=== PATIENT | male | born 1960 | race Caucasian/White ===

== ENCOUNTER 2019-12-11 10:15 | Inpatient (IN) | payer MEDICARE, MEDICAID ==
[~2019-12-11] VITALS: Ht 177.8 cm; Wt 80.5 kg
[~2019-12-11 10:15] MED LIST: ASPIRIN325 MG ORAL; DEPAKOTE250 MG PO; FISH OIL CAP1000 MG ORAL; INDERAL LA60 MG ORAL; MELATONIN3 M1 ORAL; MIRTAZAPINE15 MG ORAL; TRAZODONE HCL150 MG ORAL; ZYPREXA10 MG ORAL
[2019-12-11 10:23] VITALS: BP 127/84
--- NOTE | 2019-12-11 10:29 | Emergency Room Report ---
History of Present Illness General Chief Complaint: Chest Pain Source: Patient, Medical Record, EMS Present Illness HPI This patient presents from a boarding care facility. He reports that he developed chest pain this morning just after he woke up. He states that the chest pain has since resolved. He denies recent illness. He denies cough or congestion. He denies shortness of breath. Denies fever chills. He denies nausea or vomiting. He has no other complaints. 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 Patient History Past Medical History: see triage record, HTN, psych hx Social History: Denies: smoking, alcohol use, drug use Reviewed Nursing Documentation: PMH: Agreed; PSxH: Agreed Nursing Documentation-PMH Hx Cardiac Problems: Yes Hx Hypertension: Yes Hx Diabetes: Yes Hx Cancer: No Hx Gastrointestinal Problems: No History Of Psychiatric Problem: Yes Hx Neurological Problems: Yes Hx Syncope: Yes Review of Systems All Other Systems: negative except mentioned in HPI Physical Exam Vital Signs Date Time Temp Pulse Resp B/P (MAP) Pulse Ox O2 Delivery O2 Flow Rate FiO2 12/11/19 10:19 97.3 62 19 127/84 (98) 99 Room Air Sp02 EP Interpretation: reviewed, normal General Appearance: no apparent distress, alert, GCS 15, non-toxic Head: normocephalic, atraumatic Eyes: bilateral eye normal inspection, bilateral eye PERRL ENT: hearing grossly normal, normal pharynx, no angioedema, normal voice Neck: full range of motion, supple/symm/no masses Respiratory: chest non-tender, lungs clear, normal breath sounds, no respiratory distress, no retraction, no accessory muscle use, speaking full sentences Cardiovascular #1: regular rate, rhythm, no edema Gastrointestinal: normal bowel sounds, non tender, soft, non-distended, no guarding, no rebound Rectal: deferred Musculoskeletal: back normal, normal range of motion, gait/station normal, non- tender Neurologic: alert, motor strength/tone normal, oriented x3, sensory intact, responsive, speech normal Psychiatric: judgement/insight normal, memory normal, mood/affect normal, no suicidal/homicidal ideation Skin: no rash, normal color Medical Decision Making Diagnostic Impression: Primary Impression: Chest pain ER Course This patient presents with chest pain. Overall, the patient's evaluation was benign. However, the patient's EKG did have nonspecific findings in the inferior leads that could represent cardiac ischemia. Patient's initial troponin was negative. Chest x-ray was unremarkable. Overall, the patient remained stable with normal vital signs. He was given aspirin orally. He is admitted for further evaluation and treatment and to further assess for acute coronary syndrome. This patient was evaluated in the context of the global COVID-19 pandemic, which necessitated consideration that the patient might be at risk for infection with the [id number] virus that causes COVID-19. Institutional protocols and algorithms that pertain to the evaluation of patients at risk for COVID-19 and the state of rapid change based on information released by multiple regulatory bodies including the CDC and federal and state organizations. These policies and algorithms were followed during the patient' s care in the ED. Laboratory Tests Test 12/11/19 10:36 12/11/19 10:41 White Blood Count 6.9 K/UL (4.8-10.8) Red Blood Count 4.66 M/UL (4.70-6.10) L Hemoglobin 14.5 G/DL (14.2-18.0) Hematocrit 40.6 % (42.0-52.0) L Mean Corpuscular Volume 87 FL (80-99) Mean Corpuscular Hemoglobin 31.1 PG (27.0-31.0) H Mean Corpuscular Hemoglobin Concent 35.7 G/DL (32.0-36.0) Red Cell Distribution Width 13.1 % (11.6-14.8) Platelet Count 370 K/UL (150-450) Mean Platelet Volume 5.6 FL (6.5-10.1) L Neutrophils (%) (Auto) 63.0 % (45.0-75.0) Lymphocytes (%) (Auto) 21.2 % (20.0-45.0) Monocytes (%) (Auto) 8.1 % (1.0-10.0) Eosinophils (%) (Auto) 6.1 % (0.0-3.0) H Basophils (%) (Auto) 1.7 % (0.0-2.0) Prothrombin Time 11.3 SEC (9.30-11.50) Prothrombin Time INR 1.0 (0.9-1.1) Activated Partial Thromboplast Time 27 SEC (23-33) Sodium Level 143 MMOL/L (136-145) Potassium Level 4.2 MMOL/L (3.5-5.1) Chloride Level 107 MMOL/L (98-107) Carbon Dioxide Level 28 MMOL/L (21-32) Anion Gap 8 mmol/L (5-15) Blood Urea Nitrogen 17 mg/dL (7-18) Creatinine 0.8 MG/DL (0.55-1.30) Estimated Glomerular Filtration Rate > 60 mL/min (>60) Glucose Level 103 MG/DL (74-106) Calcium Level 8.5 MG/DL (8.5-10.1) Total Bilirubin 0.2 MG/DL (0.2-1.0) Aspartate Amino Transferase (AST) 17 U/L (15-37) Alanine Aminotransferase (ALT) 25 U/L (12-78) Alkaline Phosphatase 51 U/L (46-116) Troponin I 0.000 ng/mL (0.000-0.056) Total Protein 7.1 G/DL (6.4-8.2) Albumin 3.0 G/DL (3.4-5.0) L Globulin 4.1 g/dL Albumin/Globulin Ratio 0.7 (1.0-2.7) L Urine Color Pale yellow Urine Appearance Clear Urine pH 7 (4.5-8.0) Urine Specific [place] 1.010 (1.005-1.035) Urine Protein Negative (NEGATIVE) Urine Glucose (UA) Negative (NEGATIVE) Urine Ketones Negative (NEGATIVE) Urine Blood 1+ (NEGATIVE) H Urine Nitrite Negative (NEGATIVE) Urine Bilirubin Negative (NEGATIVE) Urine Urobilinogen Normal MG/DL (0.0-1.0) Urine Leukocyte Esterase Negative (NEGATIVE) Urine RBC 0-2 /HPF (0 - 0) H Urine WBC 0-2 /HPF (0 - 0) Urine Squamous Epithelial Cells Occasional /LPF Urine Bacteria Occasional /HPF (NONE) Urine Opiates Screen Pending Urine Barbiturates Screen Pending Phencyclidine (PCP) Screen Pending Urine Amphetamines Screen Pending Urine Benzodiazepines Screen Pending Urine Cocaine Screen Pending Urine Marijuana (THC) Screen Pending EKG Diagnostic Results Rate: normal Rhythm: NSR ST Segments: other - Flipped T-waves in III, aVF (NSST findings) Rhythm Strip Diag. Results EP Interpretation: yes Rate: 60's Rhythm: NSR, no PVC's, no ectopy Chest X-Ray Diagnostic Results Chest X-Ray Diagnostic Results : Chest X-Ray Ordered: Yes # of Views/Limited/Complete: 1 View Indication: Chest Pain EP Interpretation: Yes Interpretation: no consolidation, no effusion, no pneumothorax, no acute cardiopulmonary disease Impression: No acute disease Electronically Signed by: Phyllis Kincaid DO Last Vital Signs Date Time Temp Pulse Resp B/P (MAP) Pulse Ox O2 Delivery O2 Flow Rate FiO2 12/11/19 10:19 97.3 62 19 127/84 (98) 99 Room Air Disposition: ADMITTED INPATIENT Condition: Stable Phyllis Kincaid DO December 11, 2019 10:28
[2019-12-11 10:57] LABS: BASOPHILS % (AUTO) 1.7 % (0.0-2.0); EOSINOPHILS % (AUTO) 6.1 % (0.0-3.0); HEMATOCRIT 40.6 % (42.0-52.0); HEMOGLOBIN 14.5 G/DL (14.2-18.0); LYMPHOCYTES % (AUTO) 21.2 % (20.0-45.0); MEAN CORPUSCULAR VOLUME 87 FL (80-99); MONOCYTES % (AUTO) 8.1 % (1.0-10.0); PLATELET COUNT 370 K/UL (150-450); RED BLOOD COUNT 4.66 M/UL (4.70-6.10); RED CELL DISTRIBUTION WIDTH 13.1 % (11.6-14.8); WHITE BLOOD COUNT 6.9 K/UL (4.8-10.8)
[2019-12-11] MEDS ORDERED: HALDOL DEC100 MG/1 M IM (10:59)
[2019-12-11 11:01] LABS: ANION GAP 8 mmol/L (5-15); BLOOD UREA NITROGEN 17 mg/dL (7-18); CALCIUM 8.5 MG/DL (8.5-10.1); CARBON DIOXIDE 28 MMOL/L (21-32); CHLORIDE 107 MMOL/L (98-107); CREATININE 0.8 MG/DL (0.55-1.30); POTASSIUM 4.2 MMOL/L (3.5-5.1); SODIUM 143 MMOL/L (136-145)
[2019-12-11 11:06] LABS: ALANINE AMINOTRANSFERASE 25 U/L (12-78); ALBUMIN/GLOBULIN RATIO 0.7 (1.0-2.7); ALKALINE PHOSPHATASE 51 U/L (46-116); ASPARTATE AMINO TRANSFERASE 17 U/L (15-37); BILIRUBIN,TOTAL 0.2 MG/DL (0.2-1.0)
--- NOTE | 2019-12-11 11:20 | Diagnostic Imaging Report ---
Procedure: XRAY Chest 1v Reason for study: Chest pain Comparison films: 07/12/2019. FINDINGS: A single one view chest is obtained. Vascularity is normal. Minimal streaky atelectasis at the left lung base. Cardiac and mediastinal silhouette are within normal limits. CP angles are sharp. The bony thorax appear unremarkable. IMPRESSION: Minimal left basilar atelectasis.
[2019-12-11 11:27] LABS: APPEARANCE,URINE CLEAR; BILIRUBIN, URINE NEGATIVE (NEGATIVE); COLOR,URINE PALE YELLOW; GLUCOSE, URINE (UA) NEGATIVE (NEGATIVE); KETONES,URINE NEGATIVE (NEGATIVE); LEUKOCYTE ESTERASE ,URINE NEGATIVE (NEGATIVE); NITRITE,URINE NEGATIVE (NEGATIVE); PH,URINE 7 (4.5-8.0); PROTEIN,URINE NEGATIVE (NEGATIVE); UROBILINOGEN,URINE NORMAL MG/DL (0.0-1.0)
[2019-12-11 12:00] VITALS: BP 120/78
[2019-12-11 13:20] VITALS: BP_SYST 123; BP_SYST 133; BP_DIAS 67; BP_DIAS 81
[2019-12-11 15:59] VITALS: BP 143/76
[2019-12-11 20:00] VITALS: BP 136/74
[2019-12-11] MEDS: TraZODone 100mg tab ORAL SCH (21:32)
[2019-12-11] MEDS: Depakote 500mg tab ORAL SCH (21:32)
[2019-12-12] VITALS: BP 120/69
--- NOTE | 2019-12-12 00:45 | Consultation ---
DATE OF CONSULTATION: 12/11/2019 PULMONARY CONSULTATION HISTORY OF PRESENT ILLNESS: This is a 59-year-old male who came to the hospital with chest pain. The patient is a board and care resident. He denies chest congestion, fever, or cough. He reports much shortness of breath. The patient was seen and admitted to the hospital. PAST HISTORY: Significant for diabetes mellitus, hypertension, history of previous cardiac problems, underlying psych problems, and also previous syncope. MEDICATIONS: Reviewed and reconciled in chart. PHYSICAL EXAMINATION: VITAL SIGNS: Blood pressure is 130/60 and O2 saturation 98% on room air. LUNGS: Clear breath sounds. ABDOMEN: Soft. EXTREMITIES: There is no edema. NEUROLOGIC: Nonfocal. IMPRESSION: Chest pain. DISCUSSION: The patient's chest x-ray shows atelectasis. Continue medications, oxygen, pulmonary hygiene. Labs abnormal. Stress test per Cardiology. We will follow. Pablito Judd M.D. DR: Abhinav JOB#: [id number] CC:
[2019-12-12 04:00] VITALS: BP 146/80
[2019-12-12 08:00] VITALS: BP 104/70
[2019-12-12] MEDS: Depakote 500mg tab ORAL SCH ×2 (08:41→20:45)
[2019-12-12] MEDS: OLANZapine 10mg tab ORAL SCH ×2 (08:41→17:52)
--- NOTE | 2019-12-12 11:53 | Cardiac Electrophysiology PN ---
Subjective Subjective [id number] Objective Last 24 Hour Vital Signs Date Time Temp Pulse Resp B/P (MAP) Pulse Ox O2 Delivery O2 Flow Rate FiO2 12/12/19 09:00 Room Air 12/12/19 08:00 97.2 55 18 104/70 (81) 99 12/12/19 04:00 48 12/12/19 04:00 97.9 53 17 146/80 (102) 100 12/12/19 00:00 46 12/12/19 00:00 97.2 46 17 120/69 (86) 100 12/11/19 21:00 Room Air 12/11/19 20:00 97.5 57 18 136/74 (94) 99 12/11/19 20:00 57 12/11/19 16:00 54 12/11/19 15:59 97.7 53 18 143/76 (98) 99 12/11/19 15:02 Room Air 12/11/19 13:30 52 12/11/19 13:20 97.5 56 17 133/81 (98) 100 12/11/19 13:20 97.3 76 19 123/67 98 Room Air 12/11/19 13:20 97.3 68 20 127/84 99 Room Air 12/11/19 12:00 97.3 71 18 120/78 100 Room Air Intake and Output 12/11/19 12/12/19 19:00 07:00 Intake Total 480 ml 250 ml Balance 480 ml 250 ml Intake Oral 480 ml 250 ml # Voids 2 2 Laboratory Tests Test 12/12/19 05:30 Troponin I 0.000 ng/mL (0.000-0.056) Microbiology Date/Time Source Procedure Growth Status 12/11/19 12:15 Rectum Received Ramiro Denis MD December 12, 2019 11:53
[2019-12-12] MEDS ORDERED: Lexiscan 0.4mg/5ml syringe IV PRN (11:55)
[2019-12-12 12:00] VITALS: BP 118/66
--- NOTE | 2019-12-12 15:11 | Pulmonology Progress Note ---
Subjective Interval Events: None new Constitutional: Reports: no symptoms HEENT: Repors: no symptoms Respiratory: Reports: no symptoms Cardiovascular: Reports: no symptoms Allergies: Coded Allergies: No Known Allergies (Unverified , 07/12/19) Objective Last 24 Hour Vital Signs Date Time Temp Pulse Resp B/P (MAP) Pulse Ox O2 Delivery O2 Flow Rate FiO2 12/12/19 12:00 58 12/12/19 12:00 97.3 54 18 118/66 (83) 100 12/12/19 09:00 Room Air 12/12/19 08:00 97.2 55 18 104/70 (81) 99 12/12/19 08:00 53 12/12/19 04:00 48 12/12/19 04:00 97.9 53 17 146/80 (102) 100 12/12/19 00:00 46 12/12/19 00:00 97.2 46 17 120/69 (86) 100 12/11/19 21:00 Room Air 12/11/19 20:00 97.5 57 18 136/74 (94) 99 12/11/19 20:00 57 12/11/19 16:00 54 12/11/19 15:59 97.7 53 18 143/76 (98) 99 Intake and Output 12/11/19 12/12/19 19:00 07:00 Intake Total 480 ml 250 ml Balance 480 ml 250 ml Intake Oral 480 ml 250 ml # Voids 2 2 General Appearance: no acute distress HEENT: normocephalic Respiratory: chest wall non-tender, lungs clear Cardiovascular: normal peripheral pulses Abdomen: normal bowel sounds Microbiology Date/Time Source Procedure Growth Status 12/11/19 12:15 Rectum Received Laboratory Tests 12/12/19 05:30: Troponin I 0.000 12/12/19 12:15: Troponin I 0.000 Current Medications Medications (Trade) Dose Ordered Sig/Ben Route PRN Reason Start Time Stop Time Status Last Admin Dose Admin Aspirin (ASA) 325 mg DAILY ORAL 12/12/19 09:00 01/26/20 08:59 12/12/19 08:41 Divalproex Sodium (Depakote) 500 mg Q12HR ORAL 12/11/19 21:00 01/25/20 20:59 12/12/19 08:41 Hydralazine HCl (Apresoline) 10 mg Q4H PRN IV sbp>170 12/12/19 11:56 03/11/20 11:55 Mirtazapine (Remeron) 15 mg BEDTIME ORAL 12/11/19 21:00 03/10/20 20:59 12/11/19 21:32 Olanzapine (ZyPREXA) 20 mg BID ORAL 12/12/19 09:00 01/26/20 08:59 12/12/19 08:41 Regadenoson (Lexiscan) 0.4 mg ONCE PRN IV CARDIOLOGY 12/12/19 11:55 12/13/19 23:59 Trazodone HCl (Desyrel) 50 mg BEDTIME ORAL 12/11/19 21:00 01/10/20 20:59 12/11/19 21:32 Assessment/Plan Assessment/Plan IMPRESSION: Chest pain. DISCUSSION: The patient's chest x-ray shows atelectasis. Continue medications, oxygen, pulmonary hygiene. Labs are normal. Stress test per Cardiology. I will follow. Otoniel Alfredo Omar Syed MD December 12, 2019 15:11
[2019-12-12 16:00] VITALS: BP 107/69
[2019-12-12 20:00] VITALS: BP 134/80
[2019-12-12] MEDS: TraZODone 100mg tab ORAL SCH (20:45)
--- NOTE | 2019-12-12 20:59 | Consultation ---
DATE OF CONSULTATION: 12/12/2019 CARDIOLOGY CONSULTATION CONSULTING PHYSICIAN: Ramiro Denis MD. REFERRING PHYSICIAN: Daniel Linder DO. REASON FOR CONSULTATION: Chest pain, inferior wall ischemia. HISTORY OF PRESENT ILLNESS: The patient is a 59-year-old gentleman with history of hypertension, diabetes, and he has a history of underlying psych problem, was brought from board and care for chest discomfort and shortness of breath. The patient's EKG showed inferior wall ischemia and a Cardiology consultation was obtained for further evaluation. At the time of my evaluation, the patient is on isolation for COVID-19 and a Cardiology consultation was obtained for further evaluation and management. REVIEW OF SYSTEMS: Review of systems was negative other than what was mentioned in the history of present illness. PAST MEDICAL HISTORY: As mentioned above. FAMILY HISTORY: Noncontributory. SOCIAL HISTORY: He lives in prison. Does not smoke or drink alcohol. PHYSICAL EXAMINATION: VITAL SIGNS: Blood pressure of 104/70, pulse 55, respirations 18, and he is afebrile. His heart rate was as low as 46 before. HEAD AND NECK: Showed no JVD. LUNGS: Clear. CARDIOVASCULAR: Regular S1 and S2 with no gallop. ABDOMEN: Soft. EXTREMITIES: No pitting edema. LABORATORY AND DIAGNOSTIC DATA: White count of 6.9, hemoglobin 14.5, hematocrit of 40, and platelet count of 270. Sodium 142, potassium 4.2, BUN of 17, creatinine 0.9. Troponin negative x2. Urine toxicology is negative. ASSESSMENT AND PLAN: 1. Chest pain and inferior wall ischemia. The patient already ruled out for myocardial infarction. We will get an echocardiogram to evaluate for ejection fraction and wall motion abnormality. the patient will need a stress test after COVID is ruled out. 2. Hypertension. I will add p.r.n. clonidine at this time. 3. History of psychiatric issue, on Zyprexa, Depakote, Desyrel. Thank you very much for allowing me to participate in the care of this patient. Please do not hesitate to contact me for any questions regarding my evaluation. Sincerely, Ramiro Denis M.D. DR: Jaymie JOB#: [id number] CC:
--- NOTE | 2019-12-12 21:59 | History and Physical Report ---
DATE OF ADMISSION: 12/11/2019 TIME SEEN: 1 p.m. CONSULTANTS: 1. Ramiro Denis MD. 2. Pablito Judd MD. CHIEF COMPLAINT: Chest pain and short of breath. BRIEF HISTORY: This is a 59-year-old male who presented to [facility] last night with above-mentioned diagnoses, admitted to telemetry for further care. Currently, sleeping in bed, not talking much. REVIEW OF SYSTEMS: Unavailable. PAST MEDICAL HISTORY: ACS, shortness of breath, diabetes, hypertension, syncope. PAST SURGICAL HISTORY: Unknown. MEDICATIONS: Hydralazine, aspirin, Zyprexa, Depakote, Remeron, Desyrel. ALLERGIES: Denies. SOCIAL HISTORY: Unable to obtain, the patient is very lethargic and sleepy. PHYSICAL EXAMINATION: GENERAL: Sleeping in bed, not talking much. Lethargic. VITAL SIGNS: Temperature is 97 degrees, pulse 54, respirations 18, blood pressure 118/66. HEENT: Normocephalic and atraumatic. NECK: Trachea midline. CARDIOVASCULAR: No peripheral edema. PULMONARY: Slight short of breath on room air. ABDOMEN: No apparent wound. EXTREMITIES: No cyanosis or clubbing. LABORATORY AND DIAGNOSTIC DATA: CBC is normal. BMP is normal. Troponin is 0.00. Albumin 3.0. INR is 1.0. Urinalysis is 1+ blood. Urine tox is negative. ASSESSMENT: 1. Chest pain. 2. ACS. 3. Shortness of breath, rule out COVID. 4. . 5. Malnutrition. 6. Diabetes. 7. Hypertension. 8. Syncope and psych history. PLAN: 1. Resume home medications. 2. O2 and pulmonary treatment. 3. Antibiotics per Infectious Diseases. 4. Blood pressure, blood sugar, and pain control. 5. Dietary followup. 6. CBC and BMP in the morning. Daniel Linder D.O. DR: Tyson JOB#: [id number] CC:
[2019-12-13] VITALS: BP 128/74
[2019-12-13 04:00] VITALS: BP 120/75
[2019-12-13 06:57] LABS: HEMATOCRIT 41.8 % (42.0-52.0); HEMOGLOBIN 14.6 G/DL (14.2-18.0); MEAN CORPUSCULAR VOLUME 87 FL (80-99); PLATELET COUNT 359 K/UL (150-450); RED BLOOD COUNT 4.78 M/UL (4.70-6.10); RED CELL DISTRIBUTION WIDTH 13.5 % (11.6-14.8); WHITE BLOOD COUNT 6.5 K/UL (4.8-10.8)
[2019-12-13 07:25] LABS: ANION GAP 9 mmol/L (5-15); BLOOD UREA NITROGEN 16 mg/dL (7-18); CALCIUM 8.3 MG/DL (8.5-10.1); CARBON DIOXIDE 25 MMOL/L (21-32); CHLORIDE 107 MMOL/L (98-107); CREATININE 0.8 MG/DL (0.55-1.30); POTASSIUM 3.9 MMOL/L (3.5-5.1); SODIUM 141 MMOL/L (136-145)
[2019-12-13 08:00] VITALS: BP 119/67
--- NOTE | 2019-12-13 08:25 | General Progress Note ---
Assessment/Plan Problem List: (1) HTN (hypertension) ICD Codes: I10 - Essential (primary) hypertension SNOMED: 16260215 (2) Diabetes ICD Codes: E11.9 - Type 2 diabetes mellitus without complications SNOMED: 75693158 (3) Suspected COVID-19 virus infection ICD Codes: Z20.828 - Contact with and (suspected) exposure to other viral communicable diseases SNOMED: 381324880 (4) ACS (acute coronary syndrome) ICD Codes: I24.9 - Acute ischemic heart disease, unspecified SNOMED: 986319046 (5) SOB (shortness of breath) ICD Codes: R06.02 - Shortness of breath SNOMED: 328344998 (6) Malnutrition ICD Codes: E46 - Unspecified protein-calorie malnutrition SNOMED: 38020300 (7) Syncope ICD Codes: R55 - Syncope and collapse SNOMED: 493692077 (8) Chest pain ICD Codes: R07.9 - Chest pain, unspecified SNOMED: 27878024 (9) ACS (acute coronary syndrome) ICD Codes: I24.9 - Acute ischemic heart disease, unspecified SNOMED: 169177299 Status: unchanged Assessment/Plan: o2 pulm tx abx cardio f/u cbc bmp am Subjective Constitutional: Reports: weakness Allergies: Coded Allergies: No Known Allergies (Unverified , 07/12/19) All Systems: reviewed and negative except above Subjective sleepy calm Objective Last 24 Hour Vital Signs Date Time Temp Pulse Resp B/P (MAP) Pulse Ox O2 Delivery O2 Flow Rate FiO2 12/13/19 04:00 55 12/13/19 04:00 97.7 54 20 120/75 (90) 94 12/13/19 00:00 52 12/13/19 00:00 97.3 51 19 128/74 (92) 95 12/12/19 21:00 Room Air 12/12/19 20:00 97.2 51 18 134/80 (98) 97 12/12/19 20:00 53 12/12/19 16:00 97.9 56 18 107/69 (82) 100 12/12/19 16:00 60 12/12/19 12:00 58 12/12/19 12:00 97.3 54 18 118/66 (83) 100 12/12/19 09:00 Room Air Intake and Output 12/12/19 12/13/19 19:00 07:00 Intake Total 720 ml 120 ml Balance 720 ml 120 ml Intake Oral 720 ml 120 ml # Voids 4 1 Laboratory Tests 12/12/19 12:15: Troponin I 0.000 12/12/19 19:50: Troponin I 0.000 12/13/19 05:14: White Blood Count 6.5, Red Blood Count 4.78, Hemoglobin 14.6, Hematocrit 41.8L, Mean Corpuscular Volume 87, Mean Corpuscular Hemoglobin 30.4, Mean Corpuscular Hemoglobin Concent 34.8, Red Cell Distribution Width 13.5, Platelet Count 359, Mean Platelet Volume 5.5L, Neutrophils (%) (Auto) , Lymphocytes (%) (Auto) , Monocytes (%) (Auto) , Eosinophils (%) (Auto) , Basophils (%) (Auto) , Neutrophils % (Manual) [Pending], Lymphocytes % (Manual) [Pending], Platelet Estimate [Pending], Platelet Morphology [Pending], Sodium Level 141, Potassium Level 3.9, Chloride Level 107, Carbon Dioxide Level 25, Anion Gap 9, Blood Urea Nitrogen 16, Creatinine 0.8, Estimat Glomerular Filtration Rate > 60, Glucose Level 87, Calcium Level 8.3L, Pro-B-Type Natriuretic Peptide 34 Height (Feet): 5 Height (Inches): 10.00 Weight (Pounds): 170 General Appearance: lethargic EENT: normal ENT inspection Neck: normal alignment Respiratory/Chest: no respiratory distress, no accessory muscle use Extremities: normal inspection Skin: normal pigmentation Daniel Linder DO December 13, 2019 08:25
--- NOTE | 2019-12-13 09:14 | Cardiac Electrophysiology PN ---
Assessment/Plan Assessment/Plan 1. Chest pain and inferior wall ischemia. The patient already ruled out for myocardial infarction. Echocardiogram and stress test pending today now that COVID is negative 2. Hypertension. On p.r.n. clonidine at this time. 3. Bradycardia. HR 50s 4. History of psychiatric issue, on Zyprexa, Depakote, Desyrel. Subjective Subjective Covid negative. Stress test pending today Objective Last 24 Hour Vital Signs Date Time Temp Pulse Resp B/P (MAP) Pulse Ox O2 Delivery O2 Flow Rate FiO2 12/13/19 08:00 97.6 53 18 119/67 (84) 95 12/13/19 04:00 55 12/13/19 04:00 97.7 54 20 120/75 (90) 94 12/13/19 00:00 52 12/13/19 00:00 97.3 51 19 128/74 (92) 95 12/12/19 21:00 Room Air 12/12/19 20:00 97.2 51 18 134/80 (98) 97 12/12/19 20:00 53 12/12/19 16:00 97.9 56 18 107/69 (82) 100 12/12/19 16:00 60 12/12/19 12:00 58 12/12/19 12:00 97.3 54 18 118/66 (83) 100 Intake and Output 12/12/19 12/13/19 19:00 07:00 Intake Total 720 ml 120 ml Balance 720 ml 120 ml Intake Oral 720 ml 120 ml # Voids 4 1 Laboratory Tests Test 12/12/19 12:15 12/12/19 19:50 12/13/19 05:14 Troponin I 0.000 ng/mL (0.000-0.056) 0.000 ng/mL (0.000-0.056) White Blood Count 6.5 K/UL (4.8-10.8) Red Blood Count 4.78 M/UL (4.70-6.10) Hemoglobin 14.6 G/DL (14.2-18.0) Hematocrit 41.8 % (42.0-52.0) L Mean Corpuscular Volume 87 FL (80-99) Mean Corpuscular Hemoglobin 30.4 PG (27.0-31.0) Mean Corpuscular Hemoglobin Concent 34.8 G/DL (32.0-36.0) Red Cell Distribution Width 13.5 % (11.6-14.8) Platelet Count 359 K/UL (150-450) Mean Platelet Volume 5.5 FL (6.5-10.1) L Neutrophils (%) (Auto) % (45.0-75.0) Lymphocytes (%) (Auto) % (20.0-45.0) Monocytes (%) (Auto) % (1.0-10.0) Eosinophils (%) (Auto) % (0.0-3.0) Basophils (%) (Auto) % (0.0-2.0) Neutrophils % (Manual) Pending Lymphocytes % (Manual) Pending Platelet Estimate Pending Platelet Morphology Pending Sodium Level 141 MMOL/L (136-145) Potassium Level 3.9 MMOL/L (3.5-5.1) Chloride Level 107 MMOL/L (98-107) Carbon Dioxide Level 25 MMOL/L (21-32) Anion Gap 9 mmol/L (5-15) Blood Urea Nitrogen 16 mg/dL (7-18) Creatinine 0.8 MG/DL (0.55-1.30) Estimat Glomerular Filtration Rate > 60 mL/min (>60) Glucose Level 87 MG/DL (74-106) Calcium Level 8.3 MG/DL (8.5-10.1) L Pro-B-Type Natriuretic Peptide 34 pg/mL (0-125) Microbiology Date/Time Source Procedure Growth Status 12/11/19 10:36 Nasopharynx Coronavirus COVID-19 PCR ([facility]) - Final Complete 12/11/19 12:15 Rectum Received Objective HEAD AND NECK: No JVD. LUNGS: Clear. CARDIOVASCULAR: Regular S1 and S2 with no gallop. ABDOMEN: Soft. EXTREMITIES: No pitting edema. Ramiro Denis MD December 13, 2019 09:14
[2019-12-13] MEDS: OLANZapine 10mg tab ORAL SCH ×2 (09:32→17:29)
[2019-12-13] MEDS: Depakote 500mg tab ORAL SCH ×2 (09:32→20:23)
[2019-12-13 12:00] VITALS: BP 121/66
--- NOTE | 2019-12-13 12:25 | Pulmonology Progress Note ---
Subjective Interval Events: None new Constitutional: Reports: no symptoms HEENT: Repors: no symptoms Respiratory: Reports: no symptoms Cardiovascular: Reports: no symptoms Allergies: Coded Allergies: No Known Allergies (Unverified , 07/12/19) All Systems: reviewed and negative except above Objective Last 24 Hour Vital Signs Date Time Temp Pulse Resp B/P (MAP) Pulse Ox O2 Delivery O2 Flow Rate FiO2 12/13/19 09:00 Room Air 12/13/19 08:00 97.6 53 18 119/67 (84) 95 12/13/19 08:00 50 12/13/19 04:00 55 12/13/19 04:00 97.7 54 20 120/75 (90) 94 12/13/19 00:00 52 12/13/19 00:00 97.3 51 19 128/74 (92) 95 12/12/19 21:00 Room Air 12/12/19 20:00 97.2 51 18 134/80 (98) 97 12/12/19 20:00 53 12/12/19 16:00 97.9 56 18 107/69 (82) 100 12/12/19 16:00 60 Intake and Output 12/12/19 12/13/19 19:00 07:00 Intake Total 720 ml 120 ml Balance 720 ml 120 ml Intake Oral 720 ml 120 ml # Voids 4 1 General Appearance: no acute distress HEENT: normocephalic Respiratory: chest wall non-tender, lungs clear Cardiovascular: normal peripheral pulses Abdomen: normal bowel sounds Microbiology Date/Time Source Procedure Growth Status 12/11/19 12:15 Nasal Nares MRSA Culture - Final Staphylococcus Aureus - Mrsa Complete 12/11/19 10:36 Nasopharynx Coronavirus COVID-19 PCR ([facility]) - Final Complete 12/11/19 12:15 Rectum - Final NO CARBAPENEM-RESISTANT ENTEROBACTERI... Complete 12/11/19 12:15 Rectum VRE Culture - Final NO VANCOMYCIN RESISTANT ENTEROCOCCUS ... Complete Laboratory Tests 12/12/19 19:50: Troponin I 0.000 12/13/19 05:14: White Blood Count 6.5, Red Blood Count 4.78, Hemoglobin 14.6, Hematocrit 41.8L, Mean Corpuscular Volume 87, Mean Corpuscular Hemoglobin 30.4, Mean Corpuscular Hemoglobin Concent 34.8, Red Cell Distribution Width 13.5, Platelet Count 359, Mean Platelet Volume 5.5L, Neutrophils (%) (Auto) , Lymphocytes (%) (Auto) , Monocytes (%) (Auto) , Eosinophils (%) (Auto) , Basophils (%) (Auto) , Differential Total Cells Counted 100, Neutrophils % (Manual) 45, Lymphocytes % ( Manual) 30, Monocytes % (Manual) 8, Eosinophils % (Manual) 17H, Basophils % ( Manual) 0, Band Neutrophils 0, Platelet Estimate Adequate, Platelet Morphology Normal, Red Blood Cell Morphology Normal, Sodium Level 141, Potassium Level 3.9 , Chloride Level 107, Carbon Dioxide Level 25, Anion Gap 9, Blood Urea Nitrogen 16, Creatinine 0.8, Estimat Glomerular Filtration Rate > 60, Glucose Level 87, Calcium Level 8.3L, Pro-B-Type Natriuretic Peptide 34 Current Medications Medications (Trade) Dose Ordered Sig/Ben Route PRN Reason Start Time Stop Time Status Last Admin Dose Admin Aspirin (ASA) 325 mg DAILY ORAL 12/12/19 09:00 01/26/20 08:59 12/13/19 09:32 Divalproex Sodium (Depakote) 500 mg Q12HR ORAL 12/11/19 21:00 01/25/20 20:59 12/13/19 09:32 Hydralazine HCl (Apresoline) 10 mg Q4H PRN IV sbp>170 12/12/19 11:56 03/11/20 11:55 Mirtazapine (Remeron) 15 mg BEDTIME ORAL 12/11/19 21:00 03/10/20 20:59 12/12/19 20:45 Olanzapine (ZyPREXA) 20 mg BID ORAL 12/12/19 09:00 01/26/20 08:59 12/13/19 09:32 Regadenoson (Lexiscan) 0.4 mg ONCE PRN IV CARDIOLOGY 12/12/19 11:55 12/13/19 23:59 Trazodone HCl (Desyrel) 50 mg BEDTIME ORAL 12/11/19 21:00 01/10/20 20:59 12/12/19 20:45 Assessment/Plan Assessment/Plan IMPRESSION: Chest pain. DISCUSSION: The patient's chest x-ray shows atelectasis. He is COVID 19 pcr negative Continue medications, oxygen, pulmonary hygiene. Labs are normal. Stress test per Cardiology. I will follow. Otoniel Alfredo Omar Syed MD December 13, 2019 12:25
[2019-12-13 16:00] VITALS: BP 134/75
[2019-12-13 20:00] VITALS: BP 121/75
[2019-12-13] MEDS: TraZODone 100mg tab ORAL SCH (20:23)
[2019-12-14] VITALS: BP 109/63
[2019-12-14 04:00] VITALS: BP 101/62
[2019-12-14 06:55] LABS: BASOPHILS % (AUTO) 1.3 % (0.0-2.0); EOSINOPHILS % (AUTO) 13.5 % (0.0-3.0); HEMATOCRIT 41.4 % (42.0-52.0); HEMOGLOBIN 14.5 G/DL (14.2-18.0); LYMPHOCYTES % (AUTO) 30.4 % (20.0-45.0); MEAN CORPUSCULAR VOLUME 88 FL (80-99); MONOCYTES % (AUTO) 10.7 % (1.0-10.0); PLATELET COUNT 345 K/UL (150-450); RED BLOOD COUNT 4.73 M/UL (4.70-6.10); RED CELL DISTRIBUTION WIDTH 13.2 % (11.6-14.8); WHITE BLOOD COUNT 5.7 K/UL (4.8-10.8)
[2019-12-14 07:32] LABS: ANION GAP 8 mmol/L (5-15); BLOOD UREA NITROGEN 16 mg/dL (7-18); CALCIUM 8.6 MG/DL (8.5-10.1); CARBON DIOXIDE 29 MMOL/L (21-32); CHLORIDE 106 MMOL/L (98-107); CREATININE 0.9 MG/DL (0.55-1.30); POTASSIUM 4.2 MMOL/L (3.5-5.1); SODIUM 143 MMOL/L (136-145)
[2019-12-14 08:00] VITALS: BP 114/57
[2019-12-14] MEDS: Depakote 500mg tab ORAL SCH (09:34)
[2019-12-14] MEDS: OLANZapine 10mg tab ORAL SCH (09:35)
--- NOTE | 2019-12-14 10:03 | Pulmonology Progress Note ---
Subjective Interval Events: None new Constitutional: Reports: no symptoms HEENT: Repors: no symptoms Respiratory: Reports: no symptoms Cardiovascular: Reports: no symptoms Allergies: Coded Allergies: No Known Allergies (Unverified , 07/12/19) All Systems: reviewed and negative except above Objective Last 24 Hour Vital Signs Date Time Temp Pulse Resp B/P (MAP) Pulse Ox O2 Delivery O2 Flow Rate FiO2 12/14/19 09:00 Room Air 12/14/19 08:00 94.4 69 18 114/57 (76) 96 12/14/19 08:00 46 12/14/19 04:00 56 12/14/19 04:00 97.5 51 19 101/62 (75) 98 12/14/19 00:00 56 12/14/19 00:00 96.6 52 16 109/63 (78) 98 12/13/19 21:00 Room Air 12/13/19 20:00 56 12/13/19 20:00 97.9 61 20 121/75 (90) 94 12/13/19 16:00 97.4 53 18 134/75 (94) 96 12/13/19 16:00 66 12/13/19 12:00 56 12/13/19 12:00 97.6 56 18 121/66 (84) 97 Intake and Output 12/13/19 12/14/19 19:00 07:00 Intake Total 480 ml 120 ml Balance 480 ml 120 ml Intake Oral 480 ml 120 ml # Voids 3 2 General Appearance: no acute distress HEENT: normocephalic Respiratory: chest wall non-tender, lungs clear Cardiovascular: normal peripheral pulses Abdomen: normal bowel sounds Microbiology Date/Time Source Procedure Growth Status 12/11/19 12:15 Nasal Nares MRSA Culture - Final Staphylococcus Aureus - Mrsa Complete 12/11/19 10:36 Nasopharynx Coronavirus COVID-19 PCR ([facility]) - Final Complete 12/11/19 12:15 Rectum - Final NO CARBAPENEM-RESISTANT ENTEROBACTERI... Complete 12/11/19 12:15 Rectum VRE Culture - Final NO VANCOMYCIN RESISTANT ENTEROCOCCUS ... Complete Laboratory Tests 12/13/19 19:00: Hepatitis B Surface Antibody, Quant [Pending], Hepatitis C Antibody [Pending], HIV (1&2) Antibody Rapid Negative 12/14/19 05:59: White Blood Count 5.7, Red Blood Count 4.73, Hemoglobin 14.5, Hematocrit 41.4L, Mean Corpuscular Volume 88, Mean Corpuscular Hemoglobin 30.8, Mean Corpuscular Hemoglobin Concent 35.1, Red Cell Distribution Width 13.2, Platelet Count 345, Mean Platelet Volume 5.8L, Neutrophils (%) (Auto) 44.0L, Lymphocytes (%) (Auto) 30.4, Monocytes (%) (Auto) 10.7H, Eosinophils (%) (Auto) 13.5H, Basophils (%) ( Auto) 1.3, Sodium Level 143, Potassium Level 4.2, Chloride Level 106, Carbon Dioxide Level 29, Anion Gap 8, Blood Urea Nitrogen 16, Creatinine 0.9, Estimat Glomerular Filtration Rate > 60, Glucose Level 93, Calcium Level 8.6 Current Medications Medications (Trade) Dose Ordered Sig/Ben Route PRN Reason Start Time Stop Time Status Last Admin Dose Admin Aspirin (ASA) 325 mg DAILY ORAL 12/12/19 09:00 01/26/20 08:59 12/14/19 09:34 Divalproex Sodium (Depakote) 500 mg Q12HR ORAL 12/11/19 21:00 01/25/20 20:59 12/14/19 09:34 Hydralazine HCl (Apresoline) 10 mg Q4H PRN IV sbp>170 12/12/19 11:56 03/11/20 11:55 Mirtazapine (Remeron) 15 mg BEDTIME ORAL 12/11/19 21:00 03/10/20 20:59 12/13/19 20:24 Olanzapine (ZyPREXA) 20 mg BID ORAL 12/12/19 09:00 01/26/20 08:59 12/14/19 09:35 Trazodone HCl (Desyrel) 50 mg BEDTIME ORAL 12/11/19 21:00 01/10/20 20:59 12/13/19 20:23 Assessment/Plan Assessment/Plan IMPRESSION: Chest pain. DISCUSSION: The patient's chest x-ray shows atelectasis. He is COVID 19 pcr negative Continue medications, oxygen, pulmonary hygiene. Labs are normal. Stress test and discharge per Cardiology. I will follow. Otoniel Alfredo Omar Syed MD December 14, 2019 10:03
[2019-12-14] MEDS ORDERED: Lexiscan 0.4mg/5ml syringe IV PRN (11:27)
[2019-12-14 12:00] VITALS: BP 116/75
--- NOTE | 2019-12-14 12:21 | General Progress Note ---
Assessment/Plan Problem List: (1) HTN (hypertension) ICD Codes: I10 - Essential (primary) hypertension SNOMED: 83680402 (2) Diabetes ICD Codes: E11.9 - Type 2 diabetes mellitus without complications SNOMED: 75807934 (3) Suspected COVID-19 virus infection ICD Codes: Z20.828 - Contact with and (suspected) exposure to other viral communicable diseases SNOMED: 771002345 (4) ACS (acute coronary syndrome) ICD Codes: I24.9 - Acute ischemic heart disease, unspecified SNOMED: 359897991 (5) SOB (shortness of breath) ICD Codes: R06.02 - Shortness of breath SNOMED: 741889790 (6) Malnutrition ICD Codes: E46 - Unspecified protein-calorie malnutrition SNOMED: 95413329 (7) Syncope ICD Codes: R55 - Syncope and collapse SNOMED: 725395379 (8) Chest pain ICD Codes: R07.9 - Chest pain, unspecified SNOMED: 64135780 (9) ACS (acute coronary syndrome) ICD Codes: I24.9 - Acute ischemic heart disease, unspecified SNOMED: 481762879 Status: stable, progressing Assessment/Plan: o2 pulm tx abx cardio f/u dc w hh if clear Subjective Constitutional: Reports: weakness Allergies: Coded Allergies: No Known Allergies (Unverified , 07/12/19) All Systems: reviewed and negative except above Subjective sleepy calm Objective Last 24 Hour Vital Signs Date Time Temp Pulse Resp B/P (MAP) Pulse Ox O2 Delivery O2 Flow Rate FiO2 12/14/19 09:00 Room Air 12/14/19 08:00 94.4 69 18 114/57 (76) 96 12/14/19 08:00 46 12/14/19 04:00 56 12/14/19 04:00 97.5 51 19 101/62 (75) 98 12/14/19 00:00 56 12/14/19 00:00 96.6 52 16 109/63 (78) 98 12/13/19 21:00 Room Air 12/13/19 20:00 56 12/13/19 20:00 97.9 61 20 121/75 (90) 94 12/13/19 16:00 97.4 53 18 134/75 (94) 96 12/13/19 16:00 66 Intake and Output 12/13/19 12/14/19 19:00 07:00 Intake Total 480 ml 120 ml Balance 480 ml 120 ml Intake Oral 480 ml 120 ml # Voids 3 2 Laboratory Tests 12/13/19 19:00: Hepatitis B Surface Antibody, Quant [Pending], Hepatitis C Antibody [Pending], HIV (1&2) Antibody Rapid Negative 12/14/19 05:59: White Blood Count 5.7, Red Blood Count 4.73, Hemoglobin 14.5, Hematocrit 41.4L, Mean Corpuscular Volume 88, Mean Corpuscular Hemoglobin 30.8, Mean Corpuscular Hemoglobin Concent 35.1, Red Cell Distribution Width 13.2, Platelet Count 345, Mean Platelet Volume 5.8L, Neutrophils (%) (Auto) 44.0L, Lymphocytes (%) (Auto) 30.4, Monocytes (%) (Auto) 10.7H, Eosinophils (%) (Auto) 13.5H, Basophils (%) ( Auto) 1.3, Sodium Level 143, Potassium Level 4.2, Chloride Level 106, Carbon Dioxide Level 29, Anion Gap 8, Blood Urea Nitrogen 16, Creatinine 0.9, Estimat Glomerular Filtration Rate > 60, Glucose Level 93, Calcium Level 8.6 Height (Feet): 5 Height (Inches): 10.00 Weight (Pounds): 177 General Appearance: lethargic EENT: normal ENT inspection Neck: normal alignment Cardiovascular: normal peripheral pulses, normal rate, regular rhythm Respiratory/Chest: chest wall non-tender, lungs clear, normal breath sounds Abdomen: normal bowel sounds, non tender, soft Extremities: normal inspection Edema: no edema noted Arm (L), no edema noted Arm (R), no edema noted Leg (L), no edema noted Leg (R), no edema noted Pedal (L), no edema noted Pedal (R), no edema noted Generalized Neurologic: responsive, motor weakness Skin: normal pigmentation, warm/dry Daniel Linder DO December 14, 2019 12:21
--- NOTE | 2019-12-14 14:27 | Diagnostic Imaging Report ---
INDICATION: Chest pain. Comparison: None available. TECHNIQUE: Using a one day protocol, the patient was injected IV with 11 mCi of Myoview. Thirty minutes later, resting gated SPECT images were acquired. Through a previously established IV site, using a bolus injection chemical stress infusion protocol, the patient was given 0.4 mg of Lexiscan followed by a bolus injection of 32.6 mCi of Tc Myoview. The patient was monitored until vital signs returned acceptable levels. Gated stress SPECT supine and prone images were acquired at 30 minutes post Tc Cardiolite injection. The images were processed and displayed in the short axis, vertical and horizontal long axis, and compared with resting images. The gated stress supine images were additionally processed and evaluated for myocardial wall motion and global left ventricular ejection fraction. FINDINGS: On stress supine images, there is suggestion of a small area of photopenia at the cardiac apex as well as slight photopenia at the inferior wall. However on prone stress images, both the apical and inferior wall area show improved uptake. The supine photopenic areas may be artifactual secondary to diaphragmatic creep. No significant defect identified on resting images. The left ventricular ejection fraction is 59 %, which is within normal limits. End-diastolic and end-systolic volumes of 91 mL and 37 mL respectively were noted. IMPRESSION: NO STRESS-INDUCED ISCHEMIA. EJECTION FRACTION IS 59%. * Please note that this study is performed without the benefit of attenuation correction. Diaphragmatic creep attenuation artifacts can mimic an inferior wall abnormality.
[2019-12-14 16:00] VITALS: BP 107/62
--- NOTE | 2019-12-14 16:12 | Cardiac Electrophysiology PN ---
Assessment/Plan Assessment/Plan 1. Chest pain and inferior wall ischemia. The patient already ruled out for myocardial infarction. Echocardiogram and stress test showed no ischemia 2. Hypertension. On p.r.n. clonidine at this time. 3. Bradycardia. HR 50s, resolved 4. History of psychiatric issue, on Zyprexa, Depakote, Desyrel. Subjective Subjective Covid negative. Had Stress test today that was nonischemic Objective Last 24 Hour Vital Signs Date Time Temp Pulse Resp B/P (MAP) Pulse Ox O2 Delivery O2 Flow Rate FiO2 12/14/19 12:00 60 12/14/19 12:00 96.6 79 19 116/75 (89) 97 12/14/19 09:00 Room Air 12/14/19 08:00 94.4 69 18 114/57 (76) 96 12/14/19 08:00 46 12/14/19 04:00 56 12/14/19 04:00 97.5 51 19 101/62 (75) 98 12/14/19 00:00 56 12/14/19 00:00 96.6 52 16 109/63 (78) 98 12/13/19 21:00 Room Air 12/13/19 20:00 56 12/13/19 20:00 97.9 61 20 121/75 (90) 94 Intake and Output 12/13/19 12/14/19 19:00 07:00 Intake Total 480 ml 120 ml Balance 480 ml 120 ml Intake Oral 480 ml 120 ml # Voids 3 2 Laboratory Tests Test 12/13/19 19:00 12/14/19 05:59 Hepatitis B Surface Antibody, Quant Pending Hepatitis C Antibody Pending HIV (1&2) Antibody Rapid Negative (NEGATIVE) White Blood Count 5.7 K/UL (4.8-10.8) Red Blood Count 4.73 M/UL (4.70-6.10) Hemoglobin 14.5 G/DL (14.2-18.0) Hematocrit 41.4 % (42.0-52.0) L Mean Corpuscular Volume 88 FL (80-99) Mean Corpuscular Hemoglobin 30.8 PG (27.0-31.0) Mean Corpuscular Hemoglobin Concent 35.1 G/DL (32.0-36.0) Red Cell Distribution Width 13.2 % (11.6-14.8) Platelet Count 345 K/UL (150-450) Mean Platelet Volume 5.8 FL (6.5-10.1) L Neutrophils (%) (Auto) 44.0 % (45.0-75.0) L Lymphocytes (%) (Auto) 30.4 % (20.0-45.0) Monocytes (%) (Auto) 10.7 % (1.0-10.0) H Eosinophils (%) (Auto) 13.5 % (0.0-3.0) H Basophils (%) (Auto) 1.3 % (0.0-2.0) Sodium Level 143 MMOL/L (136-145) Potassium Level 4.2 MMOL/L (3.5-5.1) Chloride Level 106 MMOL/L (98-107) Carbon Dioxide Level 29 MMOL/L (21-32) Anion Gap 8 mmol/L (5-15) Blood Urea Nitrogen 16 mg/dL (7-18) Creatinine 0.9 MG/DL (0.55-1.30) Estimat Glomerular Filtration Rate > 60 mL/min (>60) Glucose Level 93 MG/DL (74-106) Calcium Level 8.6 MG/DL (8.5-10.1) Objective HEAD AND NECK: No JVD. LUNGS: Clear. CARDIOVASCULAR: Regular S1 and S2 with no gallop. ABDOMEN: Soft. EXTREMITIES: No pitting edema. Ramiro Denis MD December 14, 2019 16:12
--- NOTE | 2019-12-15 10:26 | Discharge Summary ---
Discharge Summary Discharge Summary _ DATE OF ADMISSION: 12/11/2019 DATE OF DISCHARGE: 12/14/19 DISCHARGED BY: Dr Linder REASON FOR ADMISSION: 59 years old male with past medical history of hypertension, diabetes mellitus, bipolar disorder, presented with complains of chest pain since this morning. He reported the chest pain at the time of arrival to ED already resolved. He denied recent illness. No cough or congestion. No associated shortness of breath. No fever or chills. Upon evaluation vital signs were stable. Laboratory work-up revealed no leukocytosis , stable hemoglobin , hematocrit and platelet count. Stable electrolytes and renal parameters. Troponin negative. Urinalysis revealed no evidence of urinary tract infection. EKG revealed sinus rhythm with inverted T waves in lead III and aVF. Chest x-ray revealed no acute cardiopulmonary pathology. Urine toxicology screen was negative. Patient was admitted for further evaluation and management to assess for acute coronary syndrome. Patient was also swabbed for COVID-19. CONSULTANTS: chief engineer waterworks Dr. Ruiz pulmonary Dr. Judd [facility] COURSE: Patient admitted to telemetry floor. Patient initially was kept in isolation. Serial troponin were negative. EKG revealed no acute ischemic changes. Patient was ruled out for acute myocardial infarction. Echocardiogram demonstrated preserved ejection fraction of 60%. No evidence of wall motion abnormality. Right ventricular systolic pressure of 38 consistent with mild pulmonary hypertension. Myocardial perfusion stress test revealed no stress-induced ischemia. Calculated ejection fraction 59%. Blood pressure was closely monitor only used hydralazine on a as needed basis. Initial bradycardia in 50s , resolved. Supplemental oxygen was on board as needed to keep pulse oximetry above 92%. Pulse oximetry remained stable on room air. Antiplatelet therapy with aspirin provided. . SARS-CoV-2 by PCR on 518 was not detected. Psych medications continued. Patient clinically stabilized and was ready for discharge with home health services to follow. FINAL DIAGNOSES: Chest pain and inferior wall ischemia Hypertension Bradycardia -resolved Suspected COVID-19 -ruled out History of psychiatric disorder DISCHARGE MEDICATIONS: See Medication Reconciliation list. DISCHARGE INSTRUCTIONS: Patient was discharged home with home health services . I have been assigned to dictate discharge summary for this account. I was not involved in the patient's management. Christelle Arredondo NP December 15, 2019 10:26
== END 2019-12-14 17:46 | disposition home or self-care (01) | DRG 311 ==
LOC: EDBD 10:15 → EMR 10:37 → 2E 12:00 → EDBEDREQ 12:31
DX: I24.9 Acute ischemic heart disease, unspecified (principal); E46 Unspecified protein-calorie malnutrition; J98.11 Atelectasis; I10 Essential (primary) hypertension; E11.9 Type 2 diabetes mellitus without complications; R00.1 Bradycardia, unspecified; R55 Syncope and collapse; I27.20 Pulmonary hypertension, unspecified; F99 Mental disorder, not otherwise specified
CPT/HCPCS: 36415; 71045; 78452; 80048; 80053; 80307; 81003; 83880; 84484; 85007; 85025; 85610; 85730; 86703; 86803; 87081; 87517; 87635; 93005; 93017; 93306; 99285; J2785